=== PATIENT | male | born 1970 | race Hispanic/Latino ===

== ENCOUNTER 2018-12-10 19:57 | Inpatient (IN) | payer OTHER ==
[2018-12-10] MEDS ORDERED: Ondansetron PF 4 MG/2 ML Vial ONE (22:30)
[2018-12-10] MEDS ORDERED: Morphine 4 MG/ML VIAL ONE (22:33)
[2018-12-11] MEDS: Piperacillin/Tazobactam 3.375 GM in Sodium Chloride 0.9% 100 ML IVPB SCH ×2 (02:32→09:36)
[2018-12-11] MEDS ORDERED: Morphine 4 MG/ML VIAL SLOW IVP SCH (05:30)
[2018-12-11] MEDS: Sodium Chloride 0.9% 1,000 ML IV SCH ×3 (06:17→20:07)
[2018-12-11 06:25] LABS: ALT (SGPT) 74 U/L (8-55); AST (SGOT) 115 U/L (5-34); Alkaline Phosphatase 220 U/L (40-150); Anion Gap 9 mmol/L (10-20); BUN (Urea Nitrogen) 21 mg/dL (8.9-20.6); Bilirubin, Total 11.2 mg/dL (0.2-1.2); Calc. Creatinine Clearance 148 mL/min (70-130); Calcium 9.2 mg/dL (7.8-10.44); Carbon Dioxide 22 mmol/L (22-29); Chloride 104 mmol/L (98-107); Estimated GFR-MDRD Greater than 90; Globulin 4.1 g/dL (2.4-3.5); Glucose 103 mg/dL (70-105); Potassium 5.1 mmol/L (3.5-5.1); Protein, Total 6.1 g/dL (6.0-8.3); Sodium 130 mmol/L (136-145)
[2018-12-11 07:30] LABS: #Monocytes 1.5 thou/uL (0.11-0.59); #Neutrophils 11.5 thou/uL (1.40-6.50); %Basophils 0.1 % (0.0-1.0); %Eosinophils 0.2 % (0.0-10.0); %Lymphocytes 13.4 % (21.0-51.0); %Monocytes 9.8 % (0.0-10.0); %Neutrophils 76.5 % (42.0-75.0); Hemoglobin 12.2 g/dL (14.0-18.0); MDiff Complete? YES; Macrocytosis MODERATE=16-30 cells (100X) (0-5/hpf); Mean Corpuscular HGB CONC 32.4 g/dL (32.0-36.0); Mean Corpuscular Hemoglobin 36.1 pg (27.0-31.0); Mean Platelet Volume 8.3 fL (7.4-10.4); Platelet Count 58 thou/uL (130-400); Platelet Morphology Comment Appears Decreased; Polychromasia SLIGHT = 2-3 cells (100X) (0-2/hpf); RBC Distribution Width 15.9 % (11.5-14.5); Red Blood Cell (RBC) Count 3.38 mill/uL (4.70-6.10); Target Cells SLIGHT = 2-5 cells (100X) (0-1/hpf)
--- NOTE | 2018-12-11 09:41 | CON ---
DATE OF CONSULTATION: 12/11/2018 CHIEF COMPLAINT: Cirrhosis. HISTORY OF PRESENT ILLNESS: This is a 48-year-old male, who presents with right-sided abdominal pain, transferred to [facility] from [place] for this pain. Pain described as 6/10 sharp in the right abdomen, mostly right upper quadrant, associated with nausea, no vomiting, no change in stools. He also notes kind of more diffuse mild abdominal pain associated with nausea and diarrhea for the last few days. He denies any known sick contacts. He is in [facility]dc over in [place]. Has a history of cirrhosis, but he denies history of known ascites or ascites drainage. No history of variceal bleeding. He has never had TIPS procedures done. He is unsure of the significance of his cirrhosis. Denies known history of jaundice, gallstones, or pancreatitis. He is a former heavy drinker. MEDICAL HISTORY: Cirrhosis and cellulitis. PAST SURGICAL HISTORY: Includes appendectomy and tonsillectomy. MEDICATIONS: Medicines taken daily; Lasix and omeprazole. ALLERGIES: NO KNOWN DRUG ALLERGIES. SOCIAL HISTORY: Former heavy daily alcohol and drug user, not currently. He is in fdc. REVIEW OF SYSTEMS: Ten-system review of systems is otherwise negative unless described above. PHYSICAL EXAMINATION: VITAL SIGNS: Blood pressure is 134/74, pulse 84, respirations 16. He is afebrile. HEENT: Sclerae icteric. Oropharynx clear. NECK: No lymphadenopathy. CHEST: Clear. HEART: Regular rate and rhythm. ABDOMEN: Soft. He is mildly tender in the right upper quadrant without guarding or rebound. No significant obvious ascites on exam. EXTREMITIES: No ischemia or edema to extremities. LABORATORY DATA: Today, his white blood cell count is 15, his hemoglobin is 12, and his platelet count is 58. Sodium 130, potassium 5.1, creatinine 0.76, bilirubin 11.2, AST and ALT are 115 and 74, albumin is 2, and his alkaline phosphatase is 220. CT scan report reviewed from [place] and it reveals ascites and cirrhosis. There is some gallbladder wall thickening. Ultrasound shows no gallstones, but there is again gallbladder wall thickening. ASSESSMENT: 1. Cirrhosis with significantly elevated bilirubin, thrombocytopenia, low albumin. 2. Gallbladder wall thickening. PLAN: I do not think he would benefit from cholecystectomy. His gallbladder wall changes on ultrasound and CT are likely related to his underlying cirrhosis. Given his high bilirubin, low albumin, and thrombocytopenia, he would be at significant operative risk. We will defer to Medical Team as well as GI for any additional management for his cirrhosis at this time. No need for surgery to follow. Please call [facility] Job ID: [id number]
--- NOTE | 2018-12-11 11:17 | HP ---
PRIMARY CARE PROVIDER: None. CHIEF COMPLAINT: Abdominal pain. HISTORY OF PRESENT ILLNESS: Mr. Siegel is a pleasant 48-year-old gentleman, who was seen at [facility] on December 11, 2018 following transfer from [facility]. He is an inmate at [facility]. He reports that he was diagnosed with hepatitis C 8 months ago. He reports that 2 nights ago, he started having nausea and vomiting. He reports vomiting multiple times. He also reports abdominal pain. The pain is in the right upper quadrant, nonradiating, on and off, no known aggravating or relieving factors, sharp and 10/10 at its worst. It was accompanied by nausea and vomiting, as mentioned earlier. He denies any fevers. He denies any chest pain or shortness of breath. REVIEW OF SYSTEMS: All other systems reviewed and found to be negative. PAST MEDICAL HISTORY: Hepatitis C, ascites, and cellulitis. PAST SURGICAL HISTORY: Appendectomy and tonsillectomy. SOCIAL HISTORY: The patient reports quitting tobacco, alcohol, and recreational drugs 4 years ago. Prior to that, he reports using marijuana, heavy alcohol use, tobacco, and ICE. FAMILY HISTORY: No family history of premature coronary artery disease. ALLERGIES: NO KNOWN DRUG ALLERGIES. CURRENT MEDICATIONS: 1. Lasix 20 mg 2 times a day. 2. Hydralazine 25 mg 3 times a day. 3. Lactulose 30 mL 2 times a day. 4. Omeprazole 20 mg 2 times a day. 5. Propranolol 20 mg 2 times a day. 6. Spironolactone 50 mg 2 times a day. PHYSICAL EXAMINATION: GENERAL: On examination, Mr. Siegel is awake and alert, not in acute distress. VITAL SIGNS: Blood pressure is 134/74, pulse 84, respiratory rate 16, and oxygen saturation 94% on room air. He is afebrile. EYES: He has scleral icterus, no conjunctival pallor. ENT: Moist mucosal membranes. No oropharyngeal erythema or exudates. NECK: Supple, nontender, trachea is midline. RESPIRATORY: Accessory muscles of breathing are not active. Chest wall movements are symmetric bilaterally. Lungs are clear to auscultation without wheeze, rhonchi, or crepitations. CARDIOVASCULAR: S1 and S2 are heard, regular. Peripheral pulses palpable. No carotid bruit. No pericardial rub. ABDOMEN: Soft, right upper quadrant tenderness present, no guarding or rigidity, positive Cruz sign, bowel sounds are heard. NEUROLOGIC: Cranial nerves 2 through 12 intact, no flapping tremor, deep tendon reflexes 2+. MUSCULOSKELETAL: Power is 5/5 in all 4 extremities. SKIN: Multiple tattoos. LYMPHATIC: No cervical lymphadenopathy. PSYCHIATRIC: Normal mood, normal affect, the patient is oriented to person, place, and time. DIAGNOSTIC STUDIES: Mr. Siegel is labs and investigations were reviewed. He has leukocytosis with 15,000 white cells, of which 76.5% are neutrophils, macrocytic anemia with hemoglobin 12.2, thrombocytopenia with platelet count 58,000, sodium of 130, normal potassium, elevated blood urea nitrogen of 21, normal creatinine, elevated total bilirubin of 11.2, elevated AST of 115, elevated ALT of 74, and elevated alkaline phosphatase of 220. Albumin is decreased at 2.0. Abdominal ultrasound done at [facility] showed cirrhosis with ascites within the right upper quadrant. He had gallbladder wall thickening. He had a positive Cruz's sign. CT scan of the abdomen and pelvis with IV contrast done at [facility] showed free fluid in the pelvis. No mass, lymphadenopathy or free air. He has complex ascites and edematous change involving the majority of the alimentary tract. ASSESSMENT AND PLAN: Mr. Siegel is a pleasant 48-year-old gentleman, who was seen at [facility] on December 11, 2018. His problem list includes: 1. Abdominal pain: Etiology is unclear, could be related to cholecystitis. General Surgery Service is being consulted for opinion and help with management. We will continue pain medications. He has already been started on Zosyn, which I will continue. 2. Abnormal liver function tests: Could be related to the patient's history of hepatitis. We will follow LFTs. Alternatively, could be related to infection in the biliary tree. We will continue antibiotics. 3. Thrombocytopenia: Likely secondary to liver disease. We will start sequential compression devices for deep venous thrombosis prophylaxis. 4. GI service being consulted for opinion and help with management. Many thanks for allowing me to participate in your patient's care. Please feel free to contact me with any questions or concerns. LEVEL OF RISK: Moderate. LEVEL OF COMPLEXITY: Moderate. Job ID: [id number]
[2018-12-11 11:55] LABS: INR-International Normal Ratio 1.5; PTT 31.3 SEC (22.9-36.1); Prothrombin Time 18.3 SEC (12.0-14.7)
[2018-12-11] MEDS ORDERED: Sodium Bicarbonate 2.5 MEQ/5 ML VIAL ONE (12:39)
[2018-12-11] MEDS ORDERED: Lidocaine 1% PF 5 ML VIAL ONE (12:39)
[2018-12-11] MEDS ORDERED: Senokot S 8.6-50 MG TAB PO PRN (14:09)
[2018-12-11 14:10] LABS: BF Color Yellow; Body Fluid Source PARACENTESIS FLD; Clarity Cloudy/Turbid (Clear); RBC Background Count 0.002; RBC Count-Automated 25000 /cumm; Tube # EDTA; WBC/NonHematic-Auto 19600 /cumm
--- NOTE | 2018-12-11 14:37 | CON ---
DATE OF CONSULTATION: 12/11/2018 REASON FOR CONSULTATION: Abdominal pain and cirrhosis. HISTORY OF PRESENT ILLNESS: Mr. Siegel is a 48-year-old male, [facility] inmate, who initially presented to [facility] yesterday with a 2-day history of abdominal pain favoring the right side. The pain is described as sharp and stabbing initially without any radiation. He also had associated nausea and vomiting, but denies having any fever or chills. The pain is now localized pretty much to the right side in the mid and upper part. Initial evaluation in [facility] showed a leukocytosis with white count of 15,000. His LFTs were noted to be all elevated. Ultrasound performed showed a common duct of 5 mm with diffuse gallbladder wall thickening. Abdominal CT showed thickening of his colon and small bowel with ascites and cirrhotic liver. The patient currently is stable with normal vitals. He still reports having abdominal pain on the right side mostly, rated at 8/10. PAST MEDICAL HISTORY: 1. Cellulitis involving the left lower extremity 6 months ago. 2. Cirrhosis from previous heavy alcohol consumption and hepatitis C. 3. Status post appendectomy and tonsillectomy. ALLERGIES: NONE. MEDICATIONS: At home include; 1. Spironolactone 50 mg b.i.d. 2. Propranolol unknown dose b.i.d. 3. Lactulose 30 mL b.i.d. 4. t.i.d. 5. Omeprazole 20 mg b.i.d. 6. Lasix 20 mg b.i.d. 7. Currently on piperacillin/tazobactam. SOCIAL HISTORY: The patient is currently incarcerated at [facility] for the last 4 years. Previous to that, he had heavy alcohol consumption, 12 pack of beer a day and smoked a pack to 2 cigarettes a day. He did have illicit drug use in the past. FAMILY HISTORY: Negative for any known GI problem, liver disease, or GI malignancy. REVIEW OF SYSTEMS: A 10-point review of systems did not show any other pertinent positives or negatives. PHYSICAL EXAMINATION: VITAL SIGNS: Temperature is 97.7, blood pressure 123/73, and pulse of 83. GENERAL: He is alert and conversant, in no distress. HEENT: Shows icteric sclerae. Oropharynx clear. NECK: Supple. CV: Shows normal S1 and S2. Regular rate and rhythm. CHEST: Shows a breath sounds. ABDOMEN: Mildly protuberant, distended, and diffusely tender, most notably in the right upper quadrant. No guarding or rebound. He has active bowel sounds. EXTREMITIES: Shows trace pedal edema. LABORATORY DATA: Sodium 130, potassium 5.1, chloride 104, CO2 of 23, creatinine 0.76, bilirubin 11.2, AST 115, ALT is 74, alkaline phosphatase is 220, and albumin is 2.0. WBCs 15, hemoglobin 12.2, and platelet count of 58,000. ASSESSMENT: 1. Right upper quadrant pain, with ultrasound showing mural thickening involving the gallbladder without gallstone and common duct measuring 5 mm. Acalculous cholecystitis is a possibility. There is no evidence of biliary obstruction. Hyperbilirubinemia is likely from his advanced cirrhosis with perhaps the increased intrahepatic cholestasis from infection or inflammation. 2. Cirrhosis with evidence of ascites on imaging study. RECOMMENDATION: 1. Agree with conservative management at this point as he is high risk for any surgery. 2. Continue with piperacillin/tazobactam. 3. Ultrasound-guided paracentesis of small volumes to rule out spontaneous bacterial peritonitis. 4. We will follow up closely over the next day or 2, further recommendation pending the clinical course. Job ID: [id number]
--- NOTE | 2018-12-11 14:43 | ULT ---
SONOGRAPHIC GUIDED PARACENTESIS: History: Spontaneous peritonitis. FINDINGS: After explaining the procedure and answering all questions, sonographic survey shows a small amount o f free fluid within the right lower quadrant. Sterile technique, buffered local anesthesia, sonograph ic guidance, and an anterior right lower quadrant approach were used to carefully advance a 22 gauge spinal needle into the free fluid. A total volume of 20 cc dark yellow slightly cloudy liquid was asp irated and sent to pathology for evaluation. Needle was removed. Patient tolerated the procedure well and was returned in unchanged condition. IMPRESSION: Technically successful sonographic guided paracentesis. Pathology is pending. POS: [facility]
[2018-12-11] MEDS: Piperacillin/Tazobactam 4.5 GM in Sodium Chloride 0.9% 100 ML IVPB SCH ×2 (14:57→20:08)
[2018-12-11] MEDS: hydrALAZINE 25 MG TAB PO SCH ×2 (15:00→20:08)
[2018-12-11 15:10] LABS: BF Segmented Neutrophils 62 %; Cell Count Non Hematic 36 %; Lymphocytes 2 %
[2018-12-11] MEDS: Morphine 4 MG/ML VIAL SLOW IVP PRN ×3 (16:05→23:52)
[2018-12-11] MEDS: Spironolactone 25 MG TAB PO SCH (20:08)
[2018-12-11] MEDS: Propranolol 10 MG TAB PO SCH (20:08)
[2018-12-11] MEDS: Furosemide 20 MG TAB PO SCH (20:09)
[2018-12-12] MEDS: Ondansetron PF 4 MG/2 ML Vial IVP PRN ×2 (03:30→12:46)
[2018-12-12] MEDS: Piperacillin/Tazobactam 4.5 GM in Sodium Chloride 0.9% 100 ML IVPB SCH ×3 (04:54→21:12)
[2018-12-12 07:14] LABS: Hemoglobin 12.2 g/dL (14.0-18.0); Mean Corpuscular HGB CONC 31.6 g/dL (32.0-36.0); Mean Corpuscular Hemoglobin 35.5 pg (27.0-31.0); Platelet Count 61 thou/uL (130-400); RBC Distribution Width 16.3 % (11.5-14.5); Red Blood Cell (RBC) Count 3.42 mill/uL (4.70-6.10); White Blood Cell (WBC) Count 9.3 thou/uL (4.8-10.8)
[2018-12-12 08:10] LABS: Band 9 % (5-11); Hypochromia SLIGHT = 6-15 cells (100X) (0-5/hpf); Lymphocytes 14 % (21-51); MDiff Complete? YES; Macrocytosis SLIGHT = 6-15 cells (100X) (0-5/hpf); Monocytes 15 % (0-10); Myelocyte 1 % (0-0); Neutrophil 61 % (42-75); Platelet Morphology Comment Appears Decreased; Polychromasia SLIGHT = 2-3 cells (100X) (0-2/hpf)
[2018-12-12 08:36] LABS: ALT (SGPT) 71 U/L (8-55); AST (SGOT) 126 U/L (5-34); Albumin 1.9 g/dL (3.5-5.0); Alkaline Phosphatase 196 U/L (40-150); Anion Gap 8 mmol/L (10-20); BUN (Urea Nitrogen) 21 mg/dL (8.9-20.6); Bilirubin, Total 10.6 mg/dL (0.2-1.2); Calc. Creatinine Clearance 136 mL/min (70-130); Calcium 8.9 mg/dL (7.8-10.44); Carbon Dioxide 27 mmol/L (22-29); Chloride 104 mmol/L (98-107); Estimated GFR-MDRD Greater than 90; Globulin 4.1 g/dL (2.4-3.5); Potassium 5.2 mmol/L (3.5-5.1); Sodium 134 mmol/L (136-145)
[2018-12-12 08:41] LABS: Glucose 54 mg/dL (70-105)
[2018-12-12] MEDS ORDERED: Dextrose 5% in Water 1,000 ML IV PRN (09:46)
[2018-12-12] MEDS ORDERED: HumaLOG 300 UNITS/3 ML VIAL SC PRN (09:46)
[2018-12-12] MEDS ORDERED: Dextrose 50% Abboject 50 ML SYRINGE SLOW IVP PRN (09:46)
[2018-12-12] MEDS: Furosemide 20 MG TAB PO SCH ×2 (11:29→21:11)
[2018-12-12] MEDS: hydrALAZINE 25 MG TAB PO SCH ×3 (11:29→21:11)
[2018-12-12] MEDS: Propranolol 10 MG TAB PO SCH ×2 (11:29→21:11)
[2018-12-12] MEDS: Sodium Chloride 0.9% 1,000 ML IV SCH ×2 (11:30→21:13)
[2018-12-12] MEDS ORDERED: Furosemide 40 MG/4 ML VIAL SLOW IVP SCH (11:30)
[2018-12-12] MEDS: Spironolactone 25 MG TAB PO SCH ×2 (11:30→21:11)
[2018-12-12] MEDS: Morphine 4 MG/ML VIAL SLOW IVP PRN ×3 (12:46→23:27)
--- NOTE | 2018-12-12 13:12 | NM ---
NUCLEAR MEDICINE HIDA SCAN WITH EF: HISTORY: Right upper quadrant pain. COMPARISON: None. TECHNIQUE: The patient was administered 5.5 mCi of Technetium 99m mebrofenin intravenously. Gallbladder ejectio n fraction was determined after the patient was administered 8 ounces of Ensure 1 hour after radiopha rmaceutical administration. FINDINGS: There is diffuse uptake of the radiotracer by the hepatic parenchyma. There is excretion into the in trahepatic biliary system. There is localization of radiotracer into the gallbladder. There is pass age of radiotracer from the common bile duct into multiple small bowel loops. Gallbladder ejection fraction is 15%. IMPRESSION: 1. No significant evidence of acute cholecystitis. 2. Diminished gallbladder ejection fraction. Correlate for gallbladder dyskinesia/chronic cholecyst itis. POS: [facility]
--- NOTE | 2018-12-12 15:41 | PDOC.PN ---
- Subjective Encounter Start Date: 12/12/18 Encounter Start Time: 15:39 Pt seen for followup re: abdo pain. Reports abdo pain still +, but better. No fevers. - Objective Vital Signs & Weight: Vital Signs (12 hours) Temp Pulse Resp BP BP Pulse Ox 12/12/18 15:20 62 110/69 12/12/18 12:00 97.8 F 62 16 110/69 96 12/12/18 11:29 62 12/12/18 07:35 98.4 F 62 14 109/61 96 12/12/18 03:47 98.4 F 65 17 109/51 L 93 L Weight Admit Weight 6.903 oz Weight 195 lb I&O: 12/11/18 12/12/18 12/13/18 06:59 06:59 06:59 Intake Total 102 3500 100 Output Total 550 650 Balance -448 2850 100 Result Diagrams: 12/12/18 06:34 12/12/18 06:34 Additional Labs: Accuchecks 12/12/18 11:26 POC Glucose 104 Phys Exam - Physical Examination Constitutional: NAD HEENT: moist MMs, oral pharynx no lesions, 2+ tonsils icterus Neck: no nodes, no JVD, supple, full ROM Respiratory: clear to auscultation bilateral Cardiovascular: RRR, no rub S1, S2 Gastrointestinal: soft, positive bowel sounds Mild RUQ tenderness; shifting dullness Neurological: moves all 4 limbs Psychiatric: normal affect, A&O x 3 Dx/Plan (1) Abdominal pain Code(s): R10.9 - UNSPECIFIED ABDOMINAL PAIN Status: Acute Comment: ? chronic cholecystitis per HIDA scan (2) SBP (spontaneous bacterial peritonitis) Code(s): K65.2 - SPONTANEOUS BACTERIAL PERITONITIS Status: Suspected Comment : continue antibiotics, await cultures (3) Hyperkalemia Code(s): E87.5 - HYPERKALEMIA Status: Acute Comment: administer kayexalate - Plan * . T. bili improved Review of Systems - Review of Systems Constitutional: negative: fever, chills, sweats, weakness, malaise Cardiovascular: negative: chest pain, palpitations, orthopnea, paroxysmal nocturnal dyspnea, edema, light headedness Gastrointestinal: Nausea, Abdominal Pain. negative: Vomiting, Diarrhea, Constipation, Melena, Hematochezia Genitourinary: negative: Dysuria, Frequency, Incontinence, Hematuria, Retention Musculoskeletal: negative: Neck Pain, Shoulder Pain, Arm Pain, Back Pain, Hand Pain, Leg Pain, Foot Pain Skin: negative: Rash, Lesions, Satnam, Bruising - Medications/Allergies Allergies/Adverse Reactions: Allergies Allergy/AdvReac Type Severity Reaction Status Date / Time No Known Allergies Allergy Verified 12/11/18 01:28 Medications: Current Medications Dextrose/Water (Dextrose 50%) 25 gm SLOW IVP PRN PRN PRN Reason: Hypoglycemia Last Admin: 12/12/18 11:30 Dose: 25 gm Furosemide (Lasix) 20 mg PO BID [facility] Last Admin: 12/12/18 11:29 Dose: 20 mg Glucagon (Glucagon) 1 mg IM PRN PRN PRN Reason: Hypoglycemia Hydralazine HCl (Apresoline) 25 mg PO TID [facility] Last Admin: 12/12/18 15:20 Dose: 25 mg Sodium Chloride (Normal Saline 0.9%) 1,000 mls @ 100 mls/hr IV .Q10H [facility] Last Admin: 12/12/18 11:30 Dose: 1,000 mls Piperacillin Sod/Tazobactam (Sod 4.5 gm/ Sodium Chloride) 100 mls @ 200 mls/hr IVPB Q8HR [facility] Last Admin: 12/12/18 13:40 Dose: 100 mls Dextrose/Water (D5w) 1,000 mls @ 0 mls/hr IV .Q0M PRN PRN Reason: Hypoglycemia Insulin Human Lispro (Humalog) 0 units SC .MILD SLIDING SCALE PRN PRN Reason: Mild Correctional Scale Morphine Sulfate (Morphine) 2 mg SLOW IVP Q4H PRN PRN Reason: Pain Last Admin: 12/12/18 12:46 Dose: 2 mg Ondansetron HCl (Zofran) 4 mg IVP Q6H PRN PRN Reason: Nausea/Vomiting Last Admin: 12/12/18 12:46 Dose: 4 mg Pantoprazole Sodium (Protonix) 40 mg PO BID [facility] Last Admin: 12/12/18 11:30 Dose: 40 mg Propranolol HCl (Inderal) 20 mg PO BID [facility] Last Admin: 12/12/18 11:29 Dose: 20 mg Senna/Docusate Sodium (Senokot S) 2 tab PO BID PRN PRN Reason: Constipation Sodium Chloride (Flush - Normal Saline) 10 ml IVF Q12HR [facility] Sodium Chloride (Flush - Normal Saline) 10 ml IVF PRN PRN PRN Reason: Saline Flush Spironolactone (Aldactone) 50 mg PO BID [facility] Last Admin: 12/12/18 11:30 Dose: 50 mg
--- NOTE | 2018-12-12 16:16 | PRG ---
DATE OF SERVICE: 12/12/2018 SUBJECTIVE: The patient reports having severe epigastric pain, associated nausea, but no vomiting. PHYSICAL EXAMINATION: VITAL SIGNS: Temperature 97.8, blood pressure 110/69, pulse of 62. GENERAL: He is alert, conversant, in no distress. HEENT: Shows anicteric sclerae. Oropharynx clear. NECK: Supple. CV: Shows normal S1, S2. Regular rate and rhythm. CHEST: Shows breath sounds. ABDOMEN: Somewhat more distended today with low tympany, moderate epigastric tenderness and some tenderness on the right upper quadrant. No guarding or rebound. He has active bowel sounds. EXTREMITIES: Shows trace pretibial and pedal edema. LABORATORY DATA: WBC is 9.3, hemoglobin 12.2, platelet count of 61,000. Electrolytes within normal range. Creatinine 0.82, bilirubin is 10.6, AST 126, ALT of 71, alkaline phosphatase 196. Cell count on peritoneal fluid yesterday was cloudy with 19,600 WBC and 25,000 RBC. Fluid albumin is less than 0.2. HIDA scan showed radiotracer excreting into the bile duct into the gallbladder and emptying into the small bowel. Ejection fraction calculated at 15%. ASSESSMENT: 1. Upper abdominal pain, presenting as right upper quadrant pain, now in the epigastrium. CT and ultrasound were unremarkable. Wall thickening gallbladder and small bowel and colon on CT and ultrasound are likely related to his cirrhosis and hypoalbuminemia. There is no evidence of acalculous cholecystitis on HIDA scan. 2. Cirrhosis. 3. Hyperalbuminemia is likely related from his liver disease and intrahepatic cholestasis. No evidence of obstructive process based on HIDA scan. 4. Possible spontaneous bacterial peritonitis given finding of turbid peritoneal fluid. The cell count show high WBC count, but also high RBC count also. Culture 24 hours remains negative. RECOMMENDATIONS: 1. Continue with empiric antibiotics, piperacillin/tazobactam. 2. Diagnostic upper endoscopy tomorrow. 3. Can advance diet. 4. We will continue to watch a peritoneal fluid culture. Job ID: [id number]
[2018-12-13] MEDS: Piperacillin/Tazobactam 4.5 GM in Sodium Chloride 0.9% 100 ML IVPB SCH (05:35)
[2018-12-13] MEDS: Morphine 4 MG/ML VIAL SLOW IVP PRN ×3 (05:40→17:26)
[2018-12-13 06:58] LABS: Band 5 % (5-11); Eosinophils 2 % (0-10); Hemoglobin 11.7 g/dL (14.0-18.0); Lymphocytes 23 % (21-51); MDiff Complete? YES; Mean Corpuscular HGB CONC 32.8 g/dL (32.0-36.0); Mean Corpuscular Hemoglobin 36.4 pg (27.0-31.0); Mean Platelet Volume 10.3 fL (7.4-10.4); Metamyelocyte 1 % (0-0); Monocytes 9 % (0-10); Neutrophil 60 % (42-75); Nucleated RBC 1 % (0); Platelet Count 55 thou/uL (130-400); Platelet Morphology Comment Appears Decreased; RBC Distribution Width 16.1 % (11.5-14.5); Red Blood Cell (RBC) Count 3.22 mill/uL (4.70-6.10); White Blood Cell (WBC) Count 8.1 thou/uL (4.8-10.8)
[2018-12-13 07:04] LABS: ALT (SGPT) 69 U/L (8-55); AST (SGOT) 138 U/L (5-34); Albumin 1.7 g/dL (3.5-5.0); Alkaline Phosphatase 183 U/L (40-150); Anion Gap 7 mmol/L (10-20); BUN (Urea Nitrogen) 22 mg/dL (8.9-20.6); Bilirubin, Total 7.7 mg/dL (0.2-1.2); Calc. Creatinine Clearance 122 mL/min (70-130); Calcium 7.7 mg/dL (7.8-10.44); Carbon Dioxide 26 mmol/L (22-29); Chloride 103 mmol/L (98-107); Estimated GFR-MDRD 87; Globulin 3.8 g/dL (2.4-3.5); Glucose 89 mg/dL (70-105); Lipase 136 U/L (8-78); Potassium 3.8 mmol/L (3.5-5.1); Protein, Total 5.5 g/dL (6.0-8.3); Sodium 132 mmol/L (136-145)
[2018-12-13] MEDS: Furosemide 20 MG TAB PO SCH (08:55)
[2018-12-13] MEDS: hydrALAZINE 25 MG TAB PO SCH ×3 (08:55→21:23)
[2018-12-13] MEDS: Spironolactone 25 MG TAB PO SCH ×2 (08:56→21:26)
[2018-12-13] MEDS: Sodium Chloride 0.9% 1,000 ML IV SCH ×2 (08:57→15:56)
[2018-12-13] MEDS: Propranolol 10 MG TAB PO SCH (08:57)
[2018-12-13] MEDS ORDERED: Promethazine HCl 25 MG/ML VIAL SLOW IVP PRN (13:23)
[2018-12-13] MEDS ORDERED: Promethazine HCl 25 MG/ML VIAL IM PRN (13:23)
[2018-12-13] MEDS ORDERED: Ondansetron HCl/PF 4 MG/2 ML Vial IVP PRN (13:23)
[2018-12-13] MEDS: cefTRIAXone\\ROCEPHIN 2 GM in Sodium Chloride 0.9% 100 ML IVPB SCH (15:38)
[2018-12-13] MEDS: Albumin 25% 25 GM/100 ML BOT IVPB SCH ×2 (15:39→21:21)
[2018-12-13] MEDS ORDERED: Ondansetron PF 4 MG/2 ML Vial ONE (15:50)
[2018-12-13] MEDS ORDERED: PROPOFOL 200 MG/20 ML VIAL ONE (15:50)
[2018-12-13] MEDS ORDERED: Lidocaine 1% PF 5 ML VIAL ONE (15:50)
[2018-12-13] MEDS ORDERED: Dexamethasone 20 MG/5 ML VIAL ONE (15:50)
[2018-12-13] MEDS ORDERED: Succinylcholine Chloride 20 MG/ML 10 ml SYRINGE FS ONE (15:50)
--- NOTE | 2018-12-13 17:20 | PDOC.PN ---
- Subjective Encounter Start Date: 12/13/18 Encounter Start Time: 16:00 - Objective MAR Reviewed: Yes Vital Signs & Weight: Vital Signs (12 hours) Temp Pulse Resp BP BP Pulse Ox 12/13/18 15:38 64 12/13/18 14:05 97.5 F L 64 16 114/71 97 12/13/18 10:40 97.6 F 69 16 112/63 93 L 12/13/18 08:55 70 106/63 12/13/18 07:00 98.7 F 70 14 106/63 94 L Weight Admit Weight 6.903 oz Weight 195 lb I&O: 12/12/18 12/13/18 12/14/18 06:59 06:59 06:59 Intake Total 3500 4889 1830 Output Total 650 1200 Balance 2850 3689 1830 Result Diagrams: 12/14/18 04:21 12/14/18 04:21 Additional Labs: Accuchecks 12/13/18 12/13/18 12/13/18 15:27 10:33 06:29 POC Glucose 83 86 78 12/12/18 23:31 POC Glucose 92 Labs reviewed by me Phys Exam - Physical Examination Constitutional: NAD HEENT: moist MMs icterus Neck: supple Respiratory: clear to auscultation bilateral Cardiovascular: RRR Gastrointestinal: soft Neurological: moves all 4 limbs Psychiatric: normal affect Dx/Plan (1) Abdominal pain Code(s): R10.9 - UNSPECIFIED ABDOMINAL PAIN Status: Acute Comment: Improving , ? chronic cholecystitis (2) SBP (spontaneous bacterial peritonitis) Code(s): K65.2 - SPONTANEOUS BACTERIAL PERITONITIS Status: Suspected Comment : await cultures (3) Hyperkalemia Code(s): E87.5 - HYPERKALEMIA Status: Resolved - Plan * . LFTs improving Pt improving, but slowly. Needing IV antibiotics. Will change status to inpatient. Review of Systems - Review of Systems Respiratory: negative: Cough, Shortness of Breath, SOB with Excertion, Pleuritic Pain, Wheezing Cardiovascular: negative: chest pain, palpitations, orthopnea, paroxysmal nocturnal dyspnea, edema, light headedness Gastrointestinal: Abdominal Pain - Medications/Allergies Allergies/Adverse Reactions: Allergies Allergy/AdvReac Type Severity Reaction Status Date / Time No Known Allergies Allergy Verified 12/11/18 01:28 Medications: Current Medications Albumin Human (Albumin 25%) 25 gm IVPB Q6H [facility] Stop: 12/14/18 14:01 Last Admin: 12/13/18 15:39 Dose: 25 gm Dextrose/Water (Dextrose 50%) 25 gm SLOW IVP PRN PRN PRN Reason: Hypoglycemia Last Admin: 12/12/18 11:30 Dose: 25 gm Glucagon (Glucagon) 1 mg IM PRN PRN PRN Reason: Hypoglycemia Hydralazine HCl (Apresoline) 25 mg PO TID [facility] Last Admin: 12/13/18 15:38 Dose: 25 mg Sodium Chloride (Normal Saline 0.9%) 1,000 mls @ 100 mls/hr IV .Q10H [facility] Last Admin: 12/13/18 15:56 Dose: Not Given Dextrose/Water (D5w) 1,000 mls @ 0 mls/hr IV .Q0M PRN PRN Reason: Hypoglycemia Ceftriaxone Sodium 2 gm/ (Sodium Chloride) 100 mls @ 200 mls/hr IVPB Q24HR@ 1400 [facility] Last Admin: 12/13/18 15:38 Dose: 100 mls Insulin Human Lispro (Humalog) 0 units SC .MILD SLIDING SCALE PRN PRN Reason: Mild Correctional Scale Morphine Sulfate (Morphine) 2 mg SLOW IVP Q4H PRN PRN Reason: Pain Last Admin: 12/13/18 09:44 Dose: 2 mg Ondansetron HCl (Zofran) 4 mg IVP Q6H PRN PRN Reason: Nausea/Vomiting Last Admin: 12/12/18 12:46 Dose: 4 mg Pantoprazole Sodium (Protonix) 40 mg PO BID [facility] Last Admin: 12/13/18 08:56 Dose: 40 mg Senna/Docusate Sodium (Senokot S) 2 tab PO BID PRN PRN Reason: Constipation Sodium Chloride (Flush - Normal Saline) 10 ml IVF Q12HR [facility] Last Admin: 12/13/18 08:57 Dose: 10 ml Sodium Chloride (Flush - Normal Saline) 10 ml IVF PRN PRN PRN Reason: Saline Flush Spironolactone (Aldactone) 50 mg PO BID [facility] Last Admin: 12/13/18 08:56 Dose: 50 mg
--- NOTE | 2018-12-13 19:10 | OP ---
DATE OF PROCEDURE: 12/13/2018 PROCEDURE: Esophagogastroduodenoscopy. PREOPERATIVE DIAGNOSES: 1. Right upper quadrant and epigastric abdominal pain. 2. Cirrhosis. DESCRIPTION OF PROCEDURE: Informed consent was obtained from the patient. He was sedated with general anesthesia. The bite block was placed and the endoscope was advanced easily to the second portion of the duodenum and retroflexion was performed in the stomach. The esophagus had 3 columns of small grade 1 varices without red signs. There was moderate portal hypertensive gastropathy noted in the body and fundus. The stomach was otherwise normal including retroflexed views. The pylorus and first and second portions of the duodenum were normal. IMPRESSION: 1. Three columns of small grade 1 varices without red signs. 2. Moderate portal hypertensive gastropathy. 3. Otherwise normal esophagogastroduodenoscopy. 4. Spontaneous bacterial peritonitis. The absolute neutrophil count is still elevated, even when corrected for the red blood cells. In light of lack of other source identified for his abdominal pain at this point, I would favor spontaneous bacterial peritonitis is the cause. The degree of ascites does not seem to match diagnosis of spontaneous bacterial peritonitis. Otherwise, the fluid was noted to be turbid. RECOMMENDATIONS: 1. IV albumin infusion. 2. Change antibiotics to ceftriaxone to potentially improve penetration of the peritoneal fluid. Job ID: [id number]
[2018-12-14] MEDS: Sodium Chloride 0.9% 1,000 ML IV SCH ×2 (00:32→12:31)
[2018-12-14] MEDS: Morphine 4 MG/ML VIAL SLOW IVP PRN ×4 (00:32→21:21)
[2018-12-14] MEDS: Albumin 25% 25 GM/100 ML BOT IVPB SCH ×3 (01:40→15:13)
[2018-12-14 04:45] LABS: #Lymphocytes 0.8 thou/uL (1.20-3.40); #Monocytes 0.2 thou/uL (0.11-0.59); #Neutrophils 6.3 thou/uL (1.40-6.50); %Basophils 0.3 % (0.0-1.0); %Eosinophils 0.2 % (0.0-10.0); %Lymphocytes 10.5 % (21.0-51.0); %Monocytes 2.7 % (0.0-10.0); %Neutrophils 86.3 % (42.0-75.0); Hemoglobin 10.8 g/dL (14.0-18.0); Mean Corpuscular HGB CONC 33.2 g/dL (32.0-36.0); Mean Corpuscular Hemoglobin 36.6 pg (27.0-31.0); Mean Platelet Volume 10.7 fL (7.4-10.4); Platelet Count 48 thou/uL (130-400); RBC Distribution Width 16.6 % (11.5-14.5); Red Blood Cell (RBC) Count 2.95 mill/uL (4.70-6.10); White Blood Cell (WBC) Count 7.3 thou/uL (4.8-10.8)
[2018-12-14 05:01] LABS: ALT (SGPT) 61 U/L (8-55); AST (SGOT) 123 U/L (5-34); Albumin 2.9 g/dL (3.5-5.0); Alkaline Phosphatase 145 U/L (40-150); Anion Gap 10 mmol/L (10-20); BUN (Urea Nitrogen) 22 mg/dL (8.9-20.6); Bilirubin, Total 6.8 mg/dL (0.2-1.2); Calc. Creatinine Clearance 136 mL/min (70-130); Calcium 8.8 mg/dL (7.8-10.44); Carbon Dioxide 23 mmol/L (22-29); Chloride 101 mmol/L (98-107); Estimated GFR-MDRD Greater than 90; Globulin 3.3 g/dL (2.4-3.5); Glucose 114 mg/dL (70-105); Potassium 4.3 mmol/L (3.5-5.1); Protein, Total 6.2 g/dL (6.0-8.3); Sodium 130 mmol/L (136-145)
[2018-12-14 06:40] VITALS: BMI 35.3
[2018-12-14] MEDS: hydrALAZINE 25 MG TAB PO SCH ×3 (09:03→21:20)
[2018-12-14] MEDS: Spironolactone 25 MG TAB PO SCH ×2 (09:03→21:20)
[2018-12-14] MEDS: cefTRIAXone\\ROCEPHIN 2 GM in Sodium Chloride 0.9% 100 ML IVPB SCH (13:19)
--- NOTE | 2018-12-14 15:10 | PDOC.PN ---
- Subjective Encounter Start Date: 12/14/18 Encounter Start Time: 08:40 Pt seen for followup re; abdo pain. Abdo pain is better. No fevers. - Objective MAR Reviewed: Yes Vital Signs & Weight: Vital Signs (12 hours) Temp Pulse Resp BP BP Pulse Ox 12/14/18 10:55 97.7 F 78 20 113/67 94 L 12/14/18 09:03 74 104/68 93 L 12/14/18 07:40 97.8 F 74 18 104/61 93 L 12/14/18 04:00 97.9 F 75 20 114/66 95 Weight Admit Weight 6.903 oz Weight 212 lb 8 oz I&O: 12/13/18 12/14/18 12/15/18 06:59 06:59 06:59 Intake Total 4889 4030 Output Total 1200 Balance 3689 4030 Result Diagrams: 12/14/18 04:21 12/14/18 04:21 Additional Labs: Accuchecks 12/14/18 12/14/18 12/13/18 11:01 06:38 20:51 POC Glucose 166 H 104 151 H 12/13/18 15:27 POC Glucose 83 Labs reviewed by me Phys Exam - Physical Examination Constitutional: NAD HEENT: moist MMs scleral icterus Respiratory: clear to auscultation bilateral Cardiovascular: RRR Gastrointestinal: soft distended, mild RUQ tenderness, no guarding or rigidity Neurological: moves all 4 limbs Psychiatric: normal affect Dx/Plan (1) Abdominal pain Code(s): R10.9 - UNSPECIFIED ABDOMINAL PAIN Status: Acute Comment: Improving , ? secondary to chronic cholecystitis and spontaneous bacterial peritonitis (2) SBP (spontaneous bacterial peritonitis) Code(s): K65.2 - SPONTANEOUS BACTERIAL PERITONITIS Status: Suspected Comment : await cultures, continue ceftriaxone (3) Hyperkalemia Code(s): E87.5 - HYPERKALEMIA Status: Resolved - Plan * . No plans for surgical intervention. Pt had EGD yesterday. Review of Systems - Review of Systems Respiratory: negative: Cough, Shortness of Breath, SOB with Excertion, Pleuritic Pain, Wheezing Cardiovascular: negative: chest pain, palpitations, orthopnea, paroxysmal nocturnal dyspnea, edema, light headedness Gastrointestinal: Abdominal Pain. negative: Nausea, Vomiting, Diarrhea, Constipation, Melena, Hematochezia - Medications/Allergies Allergies/Adverse Reactions: Allergies Allergy/AdvReac Type Severity Reaction Status Date / Time No Known Allergies Allergy Verified 12/11/18 01:28 Medications: Current Medications Dextrose/Water (Dextrose 50%) 25 gm SLOW IVP PRN PRN PRN Reason: Hypoglycemia Last Admin: 12/12/18 11:30 Dose: 25 gm Glucagon (Glucagon) 1 mg IM PRN PRN PRN Reason: Hypoglycemia Hydralazine HCl (Apresoline) 25 mg PO TID [facility] Last Admin: 12/14/18 09:03 Dose: 25 mg Sodium Chloride (Normal Saline 0.9%) 1,000 mls @ 100 mls/hr IV .Q10H [facility] Last Admin: 12/14/18 12:31 Dose: Not Given Dextrose/Water (D5w) 1,000 mls @ 0 mls/hr IV .Q0M PRN PRN Reason: Hypoglycemia Ceftriaxone Sodium 2 gm/ (Sodium Chloride) 100 mls @ 200 mls/hr IVPB Q24HR@ 1400 [facility] Last Admin: 12/14/18 13:19 Dose: 100 mls Insulin Human Lispro (Humalog) 0 units SC .MILD SLIDING SCALE PRN PRN Reason: Mild Correctional Scale Morphine Sulfate (Morphine) 2 mg SLOW IVP Q4H PRN PRN Reason: Pain Last Admin: 12/14/18 13:19 Dose: 2 mg Ondansetron HCl (Zofran) 4 mg IVP Q6H PRN PRN Reason: Nausea/Vomiting Last Admin: 12/12/18 12:46 Dose: 4 mg Pantoprazole Sodium (Protonix) 40 mg PO BID [facility] Last Admin: 12/14/18 09:03 Dose: 40 mg Senna/Docusate Sodium (Senokot S) 2 tab PO BID PRN PRN Reason: Constipation Sodium Chloride (Flush - Normal Saline) 10 ml IVF Q12HR [facility] Last Admin: 12/14/18 09:09 Dose: 10 ml Sodium Chloride (Flush - Normal Saline) 10 ml IVF PRN PRN PRN Reason: Saline Flush Spironolactone (Aldactone) 50 mg PO BID [facility] Last Admin: 12/14/18 09:03 Dose: 50 mg
--- NOTE | 2018-12-14 15:24 | PRG ---
DATE OF SERVICE: 12/14/2018 SUBJECTIVE: Mr. Siegel is tolerating his diet. However, he complains of increased abdominal bloating or distention today. OBJECTIVE: VITAL SIGNS: Temperature 97.7, pulse is 78, and blood pressure 113/67. GENERAL: He is in no acute distress. Awake and alert. LUNGS: Clear to auscultation bilaterally. HEART: Regular rate and rhythm without murmur. ABDOMEN: Distended, but this feels more like air than fluid. There was not a large amount of fluid by the ultrasound noted on 12/11/2018. He may need a followup ultrasound if the distention continues or worsens tomorrow. IMPRESSION: 1. Abdominal distention and spontaneous bacterial peritonitis. Weigh the patient daily and continue ceftriaxone. 2. If the abdominal distention worsens or his weight increases, then consider followup ultrasound. Job ID: [id number]
[2018-12-15] MEDS: Sodium Chloride 0.9% 1,000 ML IV SCH ×2 (02:37→08:14)
[2018-12-15] MEDS: Morphine 4 MG/ML VIAL SLOW IVP PRN ×3 (05:42→21:00)
[2018-12-15 07:46] LABS: #Lymphocytes 1.1 thou/uL (1.20-3.40); #Monocytes 0.8 thou/uL (0.11-0.59); #Neutrophils 8.1 thou/uL (1.40-6.50); %Basophils 0.1 % (0.0-1.0); %Eosinophils 0.1 % (0.0-10.0); %Monocytes 8.1 % (0.0-10.0); %Neutrophils 80.7 % (42.0-75.0); Hemoglobin 10.7 g/dL (14.0-18.0); Mean Corpuscular HGB CONC 32.5 g/dL (32.0-36.0); Mean Corpuscular Hemoglobin 35.9 pg (27.0-31.0); Mean Platelet Volume 10.8 fL (7.4-10.4); Platelet Count 41 thou/uL (130-400); RBC Distribution Width 17.2 % (11.5-14.5); Red Blood Cell (RBC) Count 2.97 mill/uL (4.70-6.10)
[2018-12-15 07:57] LABS: ALT (SGPT) 57 U/L (8-55); AST (SGOT) 97 U/L (5-34); Albumin 2.7 g/dL (3.5-5.0); Alkaline Phosphatase 165 U/L (40-150); Anion Gap 11 mmol/L (10-20); BUN (Urea Nitrogen) 19 mg/dL (8.9-20.6); Bilirubin, Total 5.7 mg/dL (0.2-1.2); Calc. Creatinine Clearance 156 mL/min (70-130); Calcium 8.8 mg/dL (7.8-10.44); Carbon Dioxide 24 mmol/L (22-29); Chloride 102 mmol/L (98-107); Estimated GFR-MDRD Greater than 90; Globulin 3.1 g/dL (2.4-3.5); Glucose 149 mg/dL (70-105); Potassium 4.2 mmol/L (3.5-5.1); Protein, Total 5.8 g/dL (6.0-8.3); Sodium 133 mmol/L (136-145)
[2018-12-15] MEDS: hydrALAZINE 25 MG TAB PO SCH ×3 (08:10→21:00)
[2018-12-15] MEDS: Spironolactone 25 MG TAB PO SCH ×2 (08:10→21:00)
[2018-12-15] MEDS ORDERED: Furosemide 40 MG/4 ML VIAL SLOW IVP SCH (11:15)
--- NOTE | 2018-12-15 13:58 | PRG ---
DATE OF SERVICE: 12/15/2018 SUBJECTIVE: Mr. Siegel has had significant improvement in his abdominal pain. He is tolerating a low-sodium diet. He continues to have lower extremity edema, abdominal swelling. PHYSICAL EXAMINATION: VITAL SIGNS: Temperature 98.2, pulse 75, blood pressure 124/67. GENERAL: He is in no acute distress. Alert and oriented x3. LUNGS: Clear to auscultation bilaterally. HEART: Regular rate and rhythm without murmur. ABDOMEN: Soft, nontender. He does have mild abdominal distention. His bowel sounds are present. EXTREMITIES: 2+ pitting lower extremity edema. IMPRESSION: 1. Spontaneous bacterial peritonitis, clinically improving with ceftriaxone. 2. Edema and anasarca and ascites. He is on spironolactone 50 mg twice daily. He is on furosemide 40 mg IV. We will continue salt restriction. Weight daily. Stop maintenance normal saline. 3. Small grade 1 varices without red signs. Propranolol is currently held in light of the increased risk for renal failure in the setting of spontaneous bacterial peritonitis. He has received IV albumin. RECOMMENDATIONS: 1. Stop normal saline infusion. 2. Continue spironolactone and furosemide. 3. Salt restricted diet. 4. Follow trend of his body weight. 5. Continue ceftriaxone. Job ID: [id number]
--- NOTE | 2018-12-15 14:07 | PDOC.PN ---
- Subjective Encounter Start Date: 12/15/18 Encounter Start Time: 08:20 Pt seen for followup re: abdominal pain. Reports pain is better. - Objective MAR Reviewed: Yes Vital Signs & Weight: Vital Signs (12 hours) Temp Pulse Resp BP BP Pulse Ox 12/15/18 11:05 98.2 F 75 18 124/67 96 12/15/18 08:10 74 138/69 97 12/15/18 07:06 97.9 F 74 20 138/69 97 12/15/18 04:00 98.1 F 76 20 126/62 98 Weight Admit Weight 6.903 oz Weight 212 lb 8 oz I&O: 12/14/18 12/15/18 12/16/18 06:59 06:59 06:59 Intake Total 4030 2250 Output Total 600 Balance 4030 1650 Result Diagrams: 12/15/18 06:46 12/15/18 06:46 Additional Labs: Accuchecks 12/15/18 12/15/18 12/14/18 11:06 06:36 21:05 POC Glucose 132 H 155 H 109 12/14/18 15:46 POC Glucose 125 H labs reviewed by me Phys Exam - Physical Examination Constitutional: NAD HEENT: moist MMs Neck: supple Respiratory: clear to auscultation bilateral Cardiovascular: RRR Gastrointestinal: soft Musculoskeletal: edema present anasarca Neurological: moves all 4 limbs Psychiatric: normal affect Dx/Plan (1) Abdominal pain Code(s): R10.9 - UNSPECIFIED ABDOMINAL PAIN Status: Acute Comment: Improving likely due to spontaneous bacterial peritonitis (2) SBP (spontaneous bacterial peritonitis) Code(s): K65.2 - SPONTANEOUS BACTERIAL PERITONITIS Status: Suspected Comment : continue ceftriaxone (3) Anasarca Code(s): R60.1 - GENERALIZED EDEMA Status: Acute Comment: IV furosemide, oral Aldactone (4) Hyperkalemia Code(s): E87.5 - HYPERKALEMIA Status: Resolved - Plan * . Review of Systems - Review of Systems Cardiovascular: negative: chest pain, palpitations, orthopnea, paroxysmal nocturnal dyspnea, edema, light headedness Gastrointestinal: Abdominal Pain. negative: Nausea, Vomiting, Diarrhea, Constipation, Melena, Hematochezia - Medications/Allergies Allergies/Adverse Reactions: Allergies Allergy/AdvReac Type Severity Reaction Status Date / Time No Known Allergies Allergy Verified 02/06/19 01:28 Medications: Current Medications Dextrose/Water (Dextrose 50%) 25 gm SLOW IVP PRN PRN PRN Reason: Hypoglycemia Last Admin: 12/12/18 11:30 Dose: 25 gm Furosemide (Lasix) 40 mg SLOW IVP DAILY [facility] Glucagon (Glucagon) 1 mg IM PRN PRN PRN Reason: Hypoglycemia Hydralazine HCl (Apresoline) 25 mg PO TID [facility] Last Admin: 12/15/18 08:10 Dose: 25 mg Dextrose/Water (D5w) 1,000 mls @ 0 mls/hr IV .Q0M PRN PRN Reason: Hypoglycemia Ceftriaxone Sodium 2 gm/ (Sodium Chloride) 100 mls @ 200 mls/hr IVPB Q24HR@ 1400 [facility] Last Admin: 12/14/18 13:19 Dose: 100 mls Insulin Human Lispro (Humalog) 0 units SC .MILD SLIDING SCALE PRN PRN Reason: Mild Correctional Scale Last Admin: 12/15/18 07:06 Dose: 2 unit Morphine Sulfate (Morphine) 2 mg SLOW IVP Q4H PRN PRN Reason: Pain Last Admin: 12/15/18 09:51 Dose: 2 mg Ondansetron HCl (Zofran) 4 mg IVP Q6H PRN PRN Reason: Nausea/Vomiting Last Admin: 12/12/18 12:46 Dose: 4 mg Pantoprazole Sodium (Protonix) 40 mg PO DAILY [facility] Senna/Docusate Sodium (Senokot S) 2 tab PO BID PRN PRN Reason: Constipation Sodium Chloride (Flush - Normal Saline) 10 ml IVF Q12HR [facility] Last Admin: 12/15/18 08:11 Dose: 10 ml Sodium Chloride (Flush - Normal Saline) 10 ml IVF PRN PRN PRN Reason: Saline Flush Spironolactone (Aldactone) 50 mg PO BID [facility] Last Admin: 12/15/18 08:10 Dose: 50 mg
[2018-12-15] MEDS: cefTRIAXone\\ROCEPHIN 2 GM in Sodium Chloride 0.9% 100 ML IVPB SCH (14:12)
[2018-12-16] MEDS: Morphine 4 MG/ML VIAL SLOW IVP PRN ×3 (00:36→20:40)
[2018-12-16 06:40] LABS: #Eosinphils 0.1 thou/uL (0.0-0.7); #Lymphocytes 1.7 thou/uL (1.20-3.40); #Monocytes 0.9 thou/uL (0.11-0.59); #Neutrophils 7.1 thou/uL (1.40-6.50); %Basophils 0.2 % (0.0-1.0); %Eosinophils 0.6 % (0.0-10.0); %Lymphocytes 17.1 % (21.0-51.0); %Monocytes 9.4 % (0.0-10.0); %Neutrophils 72.7 % (42.0-75.0); Hemoglobin 12.3 g/dL (14.0-18.0); Mean Corpuscular HGB CONC 32.1 g/dL (32.0-36.0); Mean Corpuscular Hemoglobin 35.6 pg (27.0-31.0); Mean Platelet Volume 11.1 fL (7.4-10.4); Platelet Count 41 thou/uL (130-400); Red Blood Cell (RBC) Count 3.44 mill/uL (4.70-6.10); White Blood Cell (WBC) Count 9.8 thou/uL (4.8-10.8)
[2018-12-16 07:00] LABS: ALT (SGPT) 78 U/L (8-55); AST (SGOT) 143 U/L (5-34); Albumin 2.6 g/dL (3.5-5.0); Alkaline Phosphatase 153 U/L (40-150); Anion Gap 11 mmol/L (10-20); BUN (Urea Nitrogen) 16 mg/dL (8.9-20.6); Bilirubin, Total 5.2 mg/dL (0.2-1.2); Calc. Creatinine Clearance 147 mL/min (70-130); Calcium 8.2 mg/dL (7.8-10.44); Carbon Dioxide 20 mmol/L (22-29); Chloride 103 mmol/L (98-107); Estimated GFR-MDRD Greater than 90; Glucose 123 mg/dL (70-105); Potassium 4.7 mmol/L (3.5-5.1); Protein, Total 6.6 g/dL (6.0-8.3); Sodium 129 mmol/L (136-145)
[2018-12-16 07:14] LABS: MDiff Complete? YES; Macrocytosis MODERATE=16-30 cells (100X) (0-5/hpf); Platelet Morphology Comment Appears Decreased; Polychromasia SLIGHT = 2-3 cells (100X) (0-2/hpf); Target Cells SLIGHT = 2-5 cells (100X) (0-1/hpf)
[2018-12-16] MEDS: Spironolactone 25 MG TAB PO SCH (08:48)
[2018-12-16] MEDS: hydrALAZINE 25 MG TAB PO SCH ×3 (08:49→20:39)
[2018-12-16] MEDS ORDERED: Furosemide 40 MG/4 ML VIAL SLOW IVP SCH (09:00)
--- NOTE | 2018-12-16 13:09 | PRG ---
DATE OF SERVICE: 12/16/2018 SUBJECTIVE: Mr. Siegel feels much better overall. However, he has increased tightness in his abdomen and edema. He has had no nausea or vomiting. PHYSICAL EXAMINATION: VITAL SIGNS: Temperature 97.8, pulse 72, blood pressure 146/79. GENERAL: He is in no acute distress. He is alert and oriented x3. LUNGS: Clear to auscultation bilaterally. HEART: Regular rate and rhythm without murmur. ABDOMEN: Mild distention. Bowel sounds are present. EXTREMITIES: 2+ pitting lower extremity edema. LABORATORY DATA: Creatinine 0.83, bilirubin 5.2, AST 143, ALT 178, albumin 2.6. Hemoglobin 10.7, platelets 41. IMPRESSION: 1. End-stage liver disease. 2. Spontaneous bacterial peritonitis. He is clinically improving with ceftriaxone. I would complete a 5-day course of ceftriaxone if possible. From there, he should be able to transition to Bactrim DS one tablet daily for spontaneous bacterial peritonitis prophylaxis. 3. His renal functions remain normal. He should be able to increase diuretics at this point. I will increase the spironolactone to 100 mg twice daily and the furosemide to 40 mg p.o. twice daily. Job ID: [id number]
[2018-12-16] MEDS: cefTRIAXone\\ROCEPHIN 2 GM in Sodium Chloride 0.9% 100 ML IVPB SCH (14:55)
[2018-12-16] MEDS: Furosemide 40 MG TAB PO SCH (14:55)
--- NOTE | 2018-12-16 18:43 | PDOC.PN ---
- Subjective Encounter Start Date: 12/16/18 Encounter Start Time: 07:40 Pt seen for followup re: Spontaneous bacterial peritonitis. Abdo pain is much better. No fevers. - Objective Vital Signs & Weight: Vital Signs (12 hours) Temp Pulse Resp BP BP Pulse Ox 12/16/18 15:45 98.1 F 72 18 119/65 96 12/16/18 14:55 72 122/70 12/16/18 10:51 97.9 F 72 18 146/79 H 96 12/16/18 08:49 70 142/78 H 95 12/16/18 07:21 97.7 F 70 18 142/78 H 95 Weight Admit Weight 6.903 oz Weight 210 lb I&O: 12/15/18 12/16/18 12/17/18 06:59 06:59 06:59 Intake Total 2250 1660 700 Output Total 600 2275 1075 Balance 1650 -615 -375 Result Diagrams: 12/16/18 06:02 12/16/18 06:02 Additional Labs: Accuchecks 12/16/18 12/16/18 12/16/18 15:29 10:39 05:09 POC Glucose 99 114 H 101 12/15/18 21:57 POC Glucose 113 H Phys Exam - Physical Examination Obese HEENT: moist MMs Neck: supple Respiratory: clear to auscultation bilateral Cardiovascular: RRR Gastrointestinal: soft Musculoskeletal: edema present Neurological: moves all 4 limbs Psychiatric: normal affect Dx/Plan (1) SBP (spontaneous bacterial peritonitis) Code(s): K65.2 - SPONTANEOUS BACTERIAL PERITONITIS Status: Suspected Comment : continue ceftriaxone for now. Final culture report negative, switch to Bactrim BS at the time of discharge. (2) Anasarca Code(s): R60.1 - GENERALIZED EDEMA Status: Acute Comment: continue IV furosemide, oral Aldactone (3) Hyperkalemia Code(s): E87.5 - HYPERKALEMIA Status: Resolved (4) Abdominal pain Code(s): R10.9 - UNSPECIFIED ABDOMINAL PAIN Status: Resolved - Plan * . Review of Systems - Review of Systems Cardiovascular: negative: chest pain, palpitations, orthopnea, paroxysmal nocturnal dyspnea, edema, light headedness Gastrointestinal: negative: Nausea, Vomiting, Abdominal Pain, Diarrhea, Constipation, Melena, Hematochezia - Medications/Allergies Allergies/Adverse Reactions: Allergies Allergy/AdvReac Type Severity Reaction Status Date / Time No Known Allergies Allergy Verified 12/11/18 01:28 Medications: Current Medications Dextrose/Water (Dextrose 50%) 25 gm SLOW IVP PRN PRN PRN Reason: Hypoglycemia Last Admin: 12/12/18 11:30 Dose: 25 gm Furosemide (Lasix) 40 mg PO 0900,1400 [facility] Last Admin: 12/16/18 14:55 Dose: 40 mg Glucagon (Glucagon) 1 mg IM PRN PRN PRN Reason: Hypoglycemia Hydralazine HCl (Apresoline) 25 mg PO TID [facility] Last Admin: 12/16/18 14:55 Dose: 25 mg Dextrose/Water (D5w) 1,000 mls @ 0 mls/hr IV .Q0M PRN PRN Reason: Hypoglycemia Ceftriaxone Sodium 2 gm/ (Sodium Chloride) 100 mls @ 200 mls/hr IVPB Q24HR@ 1400 [facility] Last Admin: 12/16/18 14:55 Dose: 100 mls Insulin Human Lispro (Humalog) 0 units SC .MILD SLIDING SCALE PRN PRN Reason: Mild Correctional Scale Last Admin: 12/15/18 07:06 Dose: 2 unit Morphine Sulfate (Morphine) 2 mg SLOW IVP Q4H PRN PRN Reason: Pain Last Admin: 12/16/18 15:03 Dose: 2 mg Ondansetron HCl (Zofran) 4 mg IVP Q6H PRN PRN Reason: Nausea/Vomiting Last Admin: 12/12/18 12:46 Dose: 4 mg Pantoprazole Sodium (Protonix) 40 mg PO DAILY [facility] Last Admin: 12/16/18 08:49 Dose: 40 mg Senna/Docusate Sodium (Senokot S) 2 tab PO BID PRN PRN Reason: Constipation Sodium Chloride (Flush - Normal Saline) 10 ml IVF Q12HR [facility] Last Admin: 12/16/18 08:49 Dose: 10 ml Sodium Chloride (Flush - Normal Saline) 10 ml IVF PRN PRN PRN Reason: Saline Flush Spironolactone (Aldactone) 100 mg PO BID [facility]
[2018-12-16] MEDS: Spironolactone 100 MG TAB PO SCH (20:39)
[2018-12-17] MEDS: Morphine 4 MG/ML VIAL SLOW IVP PRN ×3 (06:21→20:30)
[2018-12-17 06:52] LABS: #Eosinphils 0.1 thou/uL (0.0-0.7); #Lymphocytes 2.6 thou/uL (1.20-3.40); #Monocytes 0.9 thou/uL (0.11-0.59); #Neutrophils 5.2 thou/uL (1.40-6.50); %Basophils 0.3 % (0.0-1.0); %Eosinophils 1.1 % (0.0-10.0); %Lymphocytes 29.6 % (21.0-51.0); %Monocytes 10.3 % (0.0-10.0); %Neutrophils 58.7 % (42.0-75.0); Hemoglobin 12.5 g/dL (14.0-18.0); Mean Corpuscular HGB CONC 32.1 g/dL (32.0-36.0); Mean Corpuscular Hemoglobin 35.3 pg (27.0-31.0); Mean Platelet Volume 11.5 fL (7.4-10.4); Platelet Count 43 thou/uL (130-400); Red Blood Cell (RBC) Count 3.55 mill/uL (4.70-6.10); White Blood Cell (WBC) Count 8.9 thou/uL (4.8-10.8)
[2018-12-17 07:15] LABS: ALT (SGPT) 80 U/L (8-55); AST (SGOT) 120 U/L (5-34); Albumin 2.5 g/dL (3.5-5.0); Alkaline Phosphatase 159 U/L (40-150); Anion Gap 8 mmol/L (10-20); BUN (Urea Nitrogen) 14 mg/dL (8.9-20.6); Bilirubin, Total 5.9 mg/dL (0.2-1.2); Calc. Creatinine Clearance 170 mL/min (70-130); Calcium 8.4 mg/dL (7.8-10.44); Carbon Dioxide 27 mmol/L (22-29); Chloride 101 mmol/L (98-107); Estimated GFR-MDRD Greater than 90; Globulin 3.4 g/dL (2.4-3.5); Glucose 98 mg/dL (70-105); Potassium 3.8 mmol/L (3.5-5.1); Protein, Total 5.9 g/dL (6.0-8.3); Sodium 132 mmol/L (136-145)
[2018-12-17 07:56] LABS: MDiff Complete? YES; Macrocytosis SLIGHT = 6-15 cells (100X) (0-5/hpf); Platelet Morphology Comment Appears Decreased; Polychromasia SLIGHT = 2-3 cells (100X) (0-2/hpf)
[2018-12-17] MEDS: hydrALAZINE 25 MG TAB PO SCH ×3 (09:58→20:30)
[2018-12-17] MEDS: Furosemide 40 MG TAB PO SCH ×2 (09:58→14:08)
[2018-12-17] MEDS: Spironolactone 100 MG TAB PO SCH ×2 (10:01→20:30)
[2018-12-17] MEDS: Sulfameth/Trimethoprim DS 800-160mg TAB PO SCH (10:01)
[2018-12-17] MEDS ORDERED: Sodium Bicarbonate 2.5 MEQ/5 ML VIAL ONE (13:52)
[2018-12-17] MEDS: cefTRIAXone\\ROCEPHIN 2 GM in Sodium Chloride 0.9% 100 ML IVPB SCH (14:08)
--- NOTE | 2018-12-17 15:10 | PDOC.PN ---
- Subjective Encounter Start Date: 12/17/18 Encounter Start Time: 09:20 Pt seen for followup re: SBP. c/o abdo bloating. - Objective MAR Reviewed: Yes Vital Signs & Weight: Vital Signs (12 hours) Temp Pulse Resp BP Pulse Ox 12/17/18 14:08 76 12/17/18 11:20 98.0 F 76 18 130/73 95 12/17/18 09:58 86 12/17/18 08:00 96 12/17/18 07:31 98.0 F 86 16 125/63 96 12/17/18 04:00 98.3 F 75 17 125/63 96 Weight Admit Weight 6.903 oz Weight 210 lb I&O: 12/16/18 12/17/18 12/18/18 06:59 06:59 06:59 Intake Total 1660 1710 Output Total 1016 2244 Balance -513 -355 Result Diagrams: 12/18/18 04:48 12/18/18 04:48 Additional Labs: Accuchecks 12/17/18 12/17/18 12/16/18 11:26 06:07 20:27 POC Glucose 90 96 118 H 12/16/18 15:29 POC Glucose 99 Labs reviewed by me Phys Exam - Physical Examination Obese icterus Neck: supple Respiratory: clear to auscultation bilateral Cardiovascular: RRR Gastrointestinal: soft shifting dullness Neurological: moves all 4 limbs Psychiatric: normal affect Dx/Plan (1) SBP (spontaneous bacterial peritonitis) Code(s): K65.2 - SPONTANEOUS BACTERIAL PERITONITIS Status: Suspected Comment : discontinue ceftriaxone after today's dose. sStart Bactrim DS daily starting tomorrow. Pt conplaining of abdo bloating, arrange for paracentesis. (2) Anasarca Code(s): R60.1 - GENERALIZED EDEMA Status: Acute Comment: continue furosemide and spironolactone (3) Hyperkalemia Code(s): E87.5 - HYPERKALEMIA Status: Resolved (4) Abdominal pain Code(s): R10.9 - UNSPECIFIED ABDOMINAL PAIN Status: Resolved - Plan * . Review of Systems - Review of Systems Respiratory: negative: Cough, Shortness of Breath, SOB with Excertion, Pleuritic Pain, Wheezing Cardiovascular: negative: chest pain, palpitations, orthopnea, paroxysmal nocturnal dyspnea, edema, light headedness - Medications/Allergies Allergies/Adverse Reactions: Allergies Allergy/AdvReac Type Severity Reaction Status Date / Time No Known Allergies Allergy Verified 12/11/18 01:28 Medications: Current Medications Dextrose/Water (Dextrose 50%) 25 gm SLOW IVP PRN PRN PRN Reason: Hypoglycemia Last Admin: 12/12/18 11:30 Dose: 25 gm Furosemide (Lasix) 40 mg PO 0900,1400 [facility] Last Admin: 12/17/18 14:08 Dose: 40 mg Glucagon (Glucagon) 1 mg IM PRN PRN PRN Reason: Hypoglycemia Hydralazine HCl (Apresoline) 25 mg PO TID [facility] Last Admin: 12/17/18 14:08 Dose: 25 mg Dextrose/Water (D5w) 1,000 mls @ 0 mls/hr IV .Q0M PRN PRN Reason: Hypoglycemia Ceftriaxone Sodium 2 gm/ (Sodium Chloride) 100 mls @ 200 mls/hr IVPB Q24HR@ 1400 [facility] Stop: 12/17/18 23:00 Last Admin: 12/17/18 14:08 Dose: 100 mls Insulin Human Lispro (Humalog) 0 units SC .MILD SLIDING SCALE PRN PRN Reason: Mild Correctional Scale Last Admin: 12/15/18 07:06 Dose: 2 unit Morphine Sulfate (Morphine) 2 mg SLOW IVP Q4H PRN PRN Reason: Pain Last Admin: 12/17/18 10:07 Dose: 2 mg Ondansetron HCl (Zofran) 4 mg IVP Q6H PRN PRN Reason: Nausea/Vomiting Last Admin: 12/12/18 12:46 Dose: 4 mg Pantoprazole Sodium (Protonix) 40 mg PO DAILY [facility] Last Admin: 12/17/18 09:58 Dose: 40 mg Senna/Docusate Sodium (Senokot S) 2 tab PO BID PRN PRN Reason: Constipation Sodium Chloride (Flush - Normal Saline) 10 ml IVF Q12HR [facility] Last Admin: 12/17/18 10:01 Dose: 10 ml Sodium Chloride (Flush - Normal Saline) 10 ml IVF PRN PRN PRN Reason: Saline Flush Spironolactone (Aldactone) 100 mg PO BID [facility] Last Admin: 12/17/18 10:01 Dose: 100 mg Trimethoprim/Sulfamethoxazole (Bactrim Ds) 1 tab PO DAILY [facility] Last Admin: 12/17/18 10:01 Dose: 1 tab
[2018-12-17 15:49] LABS: BF Color Yellow; Body Fluid Source Ascites Body Fluid; Clarity Hazy (Clear); RBC Background Count 0.004; Tube # EDTA; WBC/NonHematic-Auto 524 /cumm
[2018-12-17 15:50] LABS: BF RBC Count - Manual 664 /cumm
[2018-12-17 15:55] LABS: BF Segmented Neutrophils 18 %; Cell Count Non Hematic 70 %; Lymphocytes 11 %
--- NOTE | 2018-12-17 16:09 | ULT ---
ULTRASOUND GUIDED PARACENTESIS 12/17/18 HISTORY: Ascites and cirrhosis. Diagnostic paracentesis was requested. TECHNIQUE: After informed consent was obtained, patient placed on the sonography table in the supine position. L imited sonographic evaluation of the abdomen was performed. An area in the mid axillary line right mi d abdomen was marked, and the area was meticulously prepped and draped in the usual sterile fashion. Skin and subcutaneous tissues were infiltrated with buffered 1% lidocaine for local anesthesia at the intended puncture site. Utilizing concurrent real time ultrasound guidance, a 22 gauge needle was advanced into the fluid wit hin the right abdomen. Approximately 11 mm of clear straw colored fluid was aspirated. The needle was removed. Hemostasis was achieved with direct pressure. Dry sterile dressing was placed. The patient tolerated the procedure well and without immediate complication. IMPRESSION: Technically successful paracentesis with aspiration of only 11 mL of clear straw clear fluid. No add itional fluid was aspirated due to multiple loops of small bowel in the abdomen in the region of the free fluid. POS: [facility]
--- NOTE | 2018-12-17 21:59 | PRG ---
DATE OF SERVICE: 12/17/2018 SUBJECTIVE: Mr. Siegel's abdominal pain has improved with antibiotics over the last several days. He does have increased peripheral edema, anasarca, and abdominal pressure as well. He has had no nausea or vomiting. He has been tolerating solid diet. OBJECTIVE: VITAL SIGNS: Temperature 98.1, pulse 85, blood pressure 132/72. GENERAL: He is in no acute distress. Alert and oriented x3. HEENT: Eyes have no scleral icterus. LUNGS: Clear to auscultation bilaterally. HEART: Regular rate and rhythm without murmur. ABDOMEN: Soft, is mildly distended. Bowel sounds are present. EXTREMITIES: 2+ pitting lower extremity edema. LABORATORY DATA: White blood cell count 8.9, hemoglobin 12.5, platelets 43,000. Bilirubin 5.9, AST 120, ALT 80, albumin 2.5, alkaline phosphatase 159, creatinine 0.71. IMPRESSION: 1. End-stage liver disease. 2. Spontaneous bacterial peritonitis. He has improved with ceftriaxone. He has completed five days today. Diagnostic paracentesis today reveals an absolute neutrophil count of 94. He has responded well to the antibiotics. The ceftriaxone can be discontinued at this point and he can now transition to long-term spontaneous bacterial peritonitis prophylaxis with Bactrim DS once daily from now. 3. Peripheral edema, anasarca, and ascites. There was not adequate fluid for a large volume paracentesis. I have increased his spironolactone from 50 mg twice daily to 100 mg twice daily. His furosemide is scheduled twice daily as well with 40 mg twice daily. 4. He has a significant odor of increased ammonia on his breath. He had been on lactulose previously. I will restart this at once daily dosing at 15 mL. 5. Esophageal varices. Upper endoscopy on 12/13/2018 showed three columns of grade 1 varices without red signs. The propranolol was discontinued due to spontaneous bacterial peritonitis. For now, I will leave the propranolol off as he only had small grade 1 varices without red signs. RECOMMENDATIONS: 1. Discontinue ceftriaxone. 2. Continue Bactrim DS one tablet daily. 3. Furosemide 40 mg twice daily. 4. Spironolactone 100 mg twice daily. 5. We will continue to hold propranolol and not restart this medication at this point given the endoscopic findings of only small grade 1 varices without red signs. 6. Salt restricted diet. 7. Weigh the patient daily. Job ID: [id number]
[2018-12-18] MEDS: Morphine 4 MG/ML VIAL SLOW IVP PRN (05:04)
[2018-12-18 05:09] LABS: #Basophils 0.1 thou/uL (0.0-0.2); #Eosinphils 0.1 thou/uL (0.0-0.7); #Lymphocytes 2.9 thou/uL (1.20-3.40); #Monocytes 0.9 thou/uL (0.11-0.59); #Neutrophils 5.3 thou/uL (1.40-6.50); %Basophils 0.8 % (0.0-1.0); %Eosinophils 1.4 % (0.0-10.0); %Lymphocytes 31.2 % (21.0-51.0); %Monocytes 9.9 % (0.0-10.0); %Neutrophils 56.7 % (42.0-75.0); Hemoglobin 12.7 g/dL (14.0-18.0); Mean Corpuscular HGB CONC 32.7 g/dL (32.0-36.0); Mean Corpuscular Hemoglobin 36.5 pg (27.0-31.0); Platelet Count 42 thou/uL (130-400); RBC Distribution Width 18.5 % (11.5-14.5); Red Blood Cell (RBC) Count 3.49 mill/uL (4.70-6.10); White Blood Cell (WBC) Count 9.4 thou/uL (4.8-10.8)
[2018-12-18 05:26] LABS: ALT (SGPT) 74 U/L (8-55); AST (SGOT) 114 U/L (5-34); Albumin 2.5 g/dL (3.5-5.0); Alkaline Phosphatase 162 U/L (40-150); Anion Gap 12 mmol/L (10-20); BUN (Urea Nitrogen) 13 mg/dL (8.9-20.6); Bilirubin, Total 6.5 mg/dL (0.2-1.2); Calc. Creatinine Clearance 163 mL/min (70-130); Calcium 8.4 mg/dL (7.8-10.44); Carbon Dioxide 22 mmol/L (22-29); Chloride 100 mmol/L (98-107); Estimated GFR-MDRD Greater than 90; Globulin 3.4 g/dL (2.4-3.5); Glucose 81 mg/dL (70-105); Protein, Total 5.9 g/dL (6.0-8.3); Sodium 130 mmol/L (136-145)
[2018-12-18] MEDS: Furosemide 40 MG TAB PO SCH ×2 (10:07→15:03)
[2018-12-18] MEDS: Sulfameth/Trimethoprim DS 800-160mg TAB PO SCH (10:07)
[2018-12-18] MEDS: hydrALAZINE 25 MG TAB PO SCH ×3 (10:07→20:27)
[2018-12-18] MEDS: Spironolactone 100 MG TAB PO SCH ×2 (10:08→20:27)
[2018-12-18] MEDS ORDERED: traMADol HCl 50 MG TAB PO PRN (10:37)
[2018-12-18] MEDS: traMADol HCl 50 MG TAB PO PRN ×2 (11:34→20:29)
[2018-12-18 20:27] VITALS: BP 129/74
[2018-12-18 20:58] VITALS: TEMP 97.4
--- NOTE | 2018-12-18 22:05 | DIS ---
DATE OF ADMISSION: 12/10/2018 DATE OF DISCHARGE: 12/18/2018 PRIMARY CARE PROVIDER: None. DISCHARGE DIAGNOSES: 1. Spontaneous bacterial peritonitis. 2. Anasarca. 3. Hyperkalemia. 4. Chronic cholecystitis. CONSULTATIONS DURING THIS HOSPITALIZATION: 1. Gastroenterology, Dr. Sebastian. 2. General Surgery, Dr. Raman. CONDITION OF PATIENT AT THE TIME OF DISCHARGE: Stable. I assessed Mr. Siegel on the day of discharge. He denies any chest pain or shortness of breath. He denies any abdominal pain. Vital signs are stable. S1 and S2 are heard, regular. Lungs are clear to auscultation bilaterally. DISCHARGE MEDICATIONS: 1. Hydralazine 25 mg 3 times a day. 2. Lactulose 20 g 2 times a day. 3. Omeprazole 20 mg 2 times daily. 4. Lasix 40 mg 2 times a day. 5. Spironolactone 100 mg 2 times a day. 6. Bactrim DS 1 tablet daily indefinitely for SBP prophylaxis. 7. Tramadol 50 to 100 mg every 6 hours as needed. HOSPITAL COURSE: Mr. Siegel is a pleasant 48-year-old gentleman, who was admitted to [facility] on December 11, 2018, for abdominal pain. Please refer to my history and physical note dated December 11 for further information. He was seen by General Surgery and Gastroenterology Services. He underwent ultrasound-guided paracentesis. Ascitic fluid was suggestive of spontaneous bacterial peritonitis. He was treated with intravenous antibiotics and stepped down to oral antibiotics. Final ascitic fluid cultures came back negative. Gastroenterology Service recommends that he should be on Bactrim DS one tablet daily indefinitely for SBP prophylaxis. He also had a HIDA scan, which did not show any significant evidence of acute cholecystitis. He had diminished gallbladder ejection fraction, suggestive of gallbladder dyskinesia/chronic cholecystitis. He was deemed to be high risk for surgery because of his ascites. He continued to improve clinically. He went for repeat paracentesis on December 17, but had aspiration of only 11 mL of clear straw colored fluid. No additional fluid was aspirated due to multiple loops of small bowel in the abdomen in the region of the free fluid. On the day of discharge, he has white count of 9400, hemoglobin 12.7, platelet count 42,000. Sodium 130, potassium 4, creatinine 0.74, total bilirubin is 6.5, AST 114, ALT 74, and alkaline phosphatase 162. Albumin is 2.5. Many thanks for allowing me to participate in Mr. Robbin montesinos. Please feel free to contact me with any questions or concerns. DISCHARGE DESTINATION: [facility], from where patient was admitted to the hospital. Total amount of time spent coordinating this discharge: 32 minutes. Job ID: [id number]
== END 2018-12-18 21:00 | disposition home or self-care (01) | DRG 372 ==
LOC: EEVIPCON 19:57 → ERS 19:57 → SURG A 22:35 → OBSVTOIN 22:35
PROVIDERS: ADMIT Hospitalist; ATTEND Hospitalist
PROC: 0W9G3ZZ Drainage of Peritoneal Cavity, Percutaneous Approach (ICD-10-PCS; 2018-12-11)
PROC: 0DJ08ZZ Inspection of Upper Intestinal Tract, Via Natural or Artificial Opening Endoscopic (ICD-10-PCS; principal; 2018-12-13)
PROC: 0W9G3ZZ Drainage of Peritoneal Cavity, Percutaneous Approach (ICD-10-PCS; 2018-12-17)
DX: K65.2 Spontaneous bacterial peritonitis (principal); I85.00 Esophageal varices without bleeding; K76.6 Portal hypertension; K74.60 Unspecified cirrhosis of liver; E87.5 Hyperkalemia; B96.89 Other specified bacterial agents as the cause of diseases classified elsewhere; B19.20 Unspecified viral hepatitis C without hepatic coma; K31.89 Other diseases of stomach and duodenum; R60.1 Generalized edema; K72.90 Hepatic failure, unspecified without coma; D69.6 Thrombocytopenia, unspecified; F10.10 Alcohol abuse, uncomplicated
CPT/HCPCS: 36415; 36416; 49083; 78227; 80053; 82042; 83690; 85025; 85060; 85610; 85730; 87070; 87205; 89051; 96374; A9537; J0696; J1100; J1940; J2001; J2270; J2405; J2543; J2704; J7050; P9047